=== PATIENT | male | born 1980 | race African-American/Black ===

== ENCOUNTER 2024-03-26 10:08 | Emergency (ER) | payer SELFPAY ==
[~2024-03-26] VITALS: Ht 175.3 cm; Wt 108.0 kg
[2024-03-26 10:33] VITALS: O2SAT 98
[2024-03-26] MEDS ORDERED: HYDR453.3 TP (11:11)
[2024-03-26] MEDS ORDERED: ACET-2708 MT (11:11)
[2024-03-26] MEDS ORDERED: UREA71CR TP (11:14)
[2024-03-26] MEDS ORDERED: PETR5OIN3 TP (11:17)
[2024-03-26 11:24] VITALS: BP 147/81; PULSE 57; RESP 16; TEMP 37.05852; O2SAT 98
== END 2024-03-26 11:40 | disposition home or self-care (01) ==
LOC: ER 10:08
DX: R21 Rash and other nonspecific skin eruption (principal)
CPT/HCPCS: 99281